=== PATIENT | female | born 1980 | race Caucasian/White ===

== ENCOUNTER → 2020-07-04 08:36 | Outpatient (BNVA) | payer OTHER, SELFPAY | PROVIDERS: Family Provider Nurse Practitioner Family; PCP Nurse Practitioner Family; Visit Provider Registered Nurse | DX: Z20.828 Contact with and (suspected) exposure to other viral communicable diseases (principal) | CPT/HCPCS: 87635 ==

== ENCOUNTER → 2021-05-13 10:33 | Outpatient (BNVA) | payer OTHER, SELFPAY | PROVIDERS: Family Provider Nurse Practitioner Family; PCP Nurse Practitioner Family; Visit Provider Obstetrics & Gynecology Gynecology | DX: Z85.3 Personal history of malignant neoplasm of breast (principal) | CPT/HCPCS: 86304 ==

== ENCOUNTER → 2021-08-25 08:41 | Outpatient (BNVA) | payer OTHER, SELFPAY | PROVIDERS: PCP Registered Nurse; Visit Provider Surgery | DX: Z20.822 Contact with and (suspected) exposure to COVID-19 (principal); Z11.52 Encounter for screening for COVID-19 | CPT/HCPCS: 87635 ==

== ENCOUNTER 2021-11-06 08:20 | Day surgery (SDC) | payer OTHER, SELFPAY ==
[2021-11-05 10:03] VITALS: BMI 21.9
[2021-11-06 09:00] VITALS: BP 142/79; PULSE 78; RESP 18; TEMP 36.6; O2SAT 100
[2021-11-06 09:02] LABS: OR HCG Qualitative Urine Negative (Negative)
--- NOTE | 2021-11-06 09:34 | P.HP_ITS ---
Same Day Surgery H&P Indication for Procedure/HPI DATE OF PROCEDURE: November 06, 2021 CHIEF COMPLAINT/INDICATIONFOR SURGICAL PROCEDURE: right inguinal hernia repair PREOP DIAGNOSIS: right femoral hernia PLANNED PROCEDURE: Operation Date: 11/06/21 09:35 Proposed Procedures p lap poss open femoral hernia repair 34207/K41.90(Not Applicable) - Jeffery Chambers MD Medications/Allergies* Allergies/Adverse Reactions Allergy/AdvReac Type Severity Reaction Status Date / Time No Known Allergies Allergy Verified 08/26/21 12:15 Pertinent History/Comorbid Conditions* Medical History (Updated 07/04/20 @ 21:51 by GER Kruse) History of breast cancer in adulthood Insomnia Surgical History (Updated 08/22/21 @ 08:22 by Jeffery Chambers MD) History of 2002 2012 History of lumpectomy of right breast 2019 Hx of breast implants, bilateral Social History Smoking and tobacco status: never smoked Pertinent Exam Findings alert, oriented x 3 and regular rate & rhythm Recommendations Surgery/Procedure today Coding Level of Care Code Acute Triple Air Valve Tester for Juve Lazo
--- NOTE | 2021-11-06 09:39 | ANES.PREANE2 ---
Pre-Anesthetic Assessment Height/Weight: Height 1.57 m Weight 54.431 kg Temp Pulse Resp BP Pulse Ox 97.8 F 78 18 142/79 100 11/06/21 09:00 11/06/21 09:00 11/06/21 09:00 11/06/21 09:00 11/06/21 09:00 Preop Diagnosis: right femoral hernia Operation Date: 11/06/21 09:35 Proposed Procedures p lap poss open femoral hernia repair [id number]/K41.90(Not Applicable) - Jeffery Chambers MD Familial anesthetic complications: None Was Beta Lorenzo taken within 24 hours: N/A Was Clonidine taken within 24 hours: N/A Social Tobacco (Occasional vaping ) and No alcohol Exam alert, oriented x 3, clear to auscultation bilaterally and regular rate & rhythm Airway Submandibular: within normal limits Cervical ROM: within normal limits Mallampati: Class I Dentition: full History/ROS No significant complaints Pulmonary None reported CV/HEM None reported None reported Hepatic None reported GI None reported Metabolic None reported Musc/skel Hx of breast cancer Neuropsych None reported Anesthetic Plan ASA status: 2 Anesthesia: Anesthesia Evaluation and General Other: We discussed risk and benefits of general anesthesia including PONV, sore throat (sometimes severe), corneal abrasion, positioning and peripheral nerve injuries, life threatening allergic reaction, post operative ICU admission requiring prolonged intubation, stroke, heart attack, , and rare incidences of recall. Patient consents to proceed with general anesthesia. Risk of > 500 ml blood loss (7ml/kg in children): No Medications/Allergies Home Medications Medication Instructions Recorded Confirmed Last Taken Type zolpidem 10 mg tablet (Ambien) 10 mg PO .at bedtime #30 tab 09/16/21 11/06/21 11/05/21 Rx Allergies Allergy/AdvReac Type Severity Reaction Status Date / Time No Known Allergies Allergy Verified 08/26/21 12:15 [facility] Anesthesia Medical History History of breast cancer in adulthood Insomnia Surgical History History of 2002 2012 History of lumpectomy of right breast 2020 Hx of breast implants, bilateral Social History Smoking and tobacco status: never smoked Female Reproductive History Date of last menstrual period: 08/11/21 Data Anesthesia Cardiac Studies: No Data to Display
[2021-11-06] MEDS: sodium chloride 0.9% 1,000 ML 30 ML IV (09:44)
[2021-11-06] MEDS: scopolamine 1.5 Patch 1 PATCH TRANSDERMA (09:44)
[2021-11-06] MEDS: diphenhydrAMINE 50 mg/mL SDV 1mL 12.5 MG IVP (09:57)
[2021-11-06 12:13] VITALS: BP 123/84; PULSE 84; RESP 16; TEMP 36.7; O2SAT 100
[2021-11-06 12:18] VITALS: BP 110/79; PULSE 85; RESP 18; O2SAT 100
[2021-11-06 12:23] VITALS: BP 106/68; PULSE 65; RESP 16; O2SAT 97
[2021-11-06 12:27] VITALS: BP 113/77; PULSE 62; RESP 16; O2SAT 96
[2021-11-06 12:58] VITALS: BP 119/76; PULSE 48; RESP 14; TEMP 36.6; O2SAT 96
--- NOTE | 2021-11-06 13:26 | P.OP_ITS ---
Operative Report Date of procedure: November 06, 2021 Pre-op diagnosis: Incarcerated right femoral hernia Post-op diagnosis: Incarcerated right femoral hernia Procedure done: Laparoscopic total extraperitoneal repair of incarcerated right femoral hernia with 15 x 10cm Surgimax 3D mesh Pathology: none sent Surgeon: Jeffery Chambers Anesthesia: General Condition: stable Disposition: PACU Procedure: The patient was taken to the operating room and intubated under general anesthesia. After IV antibiotic was administered, the abdomen was prepped and draped in a sterile manner. Using a 15 blade, a 1.0 cm transverse incision was made infraumbilically on the right side. Subcutaneous tissue was divided using electrocautery and the anterior rectus sheath divided using an 11 blade. The rectus muscle was retracted laterally and the extraperitoneal space identified. A 11 mm port was placed and 12 mm of pneumoperitoneum was created. A 10 mm 30? scope was introduced and the retrorectus space was opened using the camera up to the pubic symphysis and 5 mm ports were placed in the midline, one 2- fingerbreadths above the pubic symphysis and the other midway between these two ports under direct visualization. Blunt dissection was carried out to open up the tissue in the midline and to the pubic symphysis, which was identified. The dissection was then carried laterally where the iliopubic tract was identified. There was no obturator or direct hernia noted. The inferior epigastric artery was identified and dissection was carried posterior to it and laterally, the space was opened up to the level of the umbilicus superior to the anterior superior iliac spine. I then proceeded to dissect out the spermatic cord and there was no indirect hernia. There was an incarcerated femoral hernia which was gently reduced by applying traction and 15 x 10cm Ultrapro mesh was rolled and introduced through the 10 mm port and rolled laterally and apposed well against the abdominal wall to cover the myopectineal orifice completely. 10 Cc of 0.5% Marcaine was infiltrated into the preperitoneal space. The extraperitoneal space was desufflated under direct visualization to ensure no slippage of hernial sac under the mesh. All ports were removed, the anterior rectus fascia at the infraumbilical port closed using figure of eight 0 Vicryl sutures, subcutaneous tissue approximated using 3-0 Vicryl sutures and skin at all three port sites were closed using running subcuticular 4-0 Monocryl sutures and Dermabond. 10 mL of 0.5% Marcaine was infiltrated at the port sites. The patient was stable throughout the procedure.
--- NOTE | 2021-11-06 14:06 | ANE.PACU2 ---
Inpatient post-anesthesia follow up: Airway intact: Yes Vital signs: Temperature 97.9 F Pulse Rate 48 Respiratory Rate 14 Blood Pressure 119/76 Pulse Oximetry 96 Oxygen Delivery Me thod Room Air Oxygen Flow Rate 5 Fraction of Inspir ed Oxygen Hydration adequate: Yes Nausea and vomiting: No Pain level: 1 Mental status: Baseline
== END 2021-11-06 13:50 | disposition home or self-care (01) ==
PROVIDERS: Anesthesiology; PCP Registered Nurse; Visit Provider Surgery
PROC: (CPT 49550; principal; 2021-11-06 09:35)
DX: K41.30 Unilateral femoral hernia, with obstruction, without gangrene, not specified as recurrent (principal); Z85.3 Personal history of malignant neoplasm of breast; F17.290 Nicotine dependence, other tobacco product, uncomplicated
CPT/HCPCS: 49659; 84703; C1781; J1100; J1170; J1200; J2405; J2704; J3010; J3490; J7030

== ENCOUNTER → 2022-04-02 11:49 | Outpatient (BNVA) | payer OTHER, SELFPAY | PROVIDERS: PCP Registered Nurse; Visit Provider Registered Nurse | DX: G47.00 Insomnia, unspecified (principal) | CPT/HCPCS: 80053; 82306; 82607; 84443; 85025 ==

== ENCOUNTER → 2022-09-18 08:41 | Outpatient (BNVA) | payer OTHER, SELFPAY | PROVIDERS: PCP Registered Nurse; Visit Provider Registered Nurse | DX: G47.00 Insomnia, unspecified (principal); E55.9 Vitamin D deficiency, unspecified | CPT/HCPCS: 80053; 82306; 85025 ==